=== PATIENT | female | born 1970 | race Caucasian/White ===

== ENCOUNTER 2017-05-25 15:14 | Emergency (ER) | payer MEDICAID ==
[2017-05-25 15:14] VITALS: BP 141/80; PULSE 112; RESP 21; TEMP 97.8; O2SAT 97
[2017-05-25] MEDS ORDERED: IBUPROFEN 800 MG TABLET PO ONE (15:45)
[2017-05-25 18:03] VITALS: BP 141/89; PULSE 98; RESP 21; TEMP 97.8; O2SAT 97
== END 2017-05-25 17:08 | disposition home or self-care (01) ==
LOC: SED 15:14
DX: S16.1XXA Strain of muscle, fascia and tendon at neck level, initial encounter (principal); S00.512A Abrasion of oral cavity, initial encounter; R03.0 Elevated blood-pressure reading, without diagnosis of hypertension; Y04.2XXA Assault by strike against or bumped into by another person, initial encounter; Y93.89 Activity, other specified; Y92.89 Other specified places as the place of occurrence of the external cause; Y99.8 Other external cause status
CPT/HCPCS: 70486-TC; 72125-TC; 99284

== ENCOUNTER 2017-05-27 14:54 | Emergency (ER) | payer MEDICAID ==
[~2017-05-27] VITALS: Ht 165.1 cm; Wt 81.6 kg
[2017-05-27 14:55] VITALS: BP_SYST 138
[2017-05-27] MEDS ORDERED: LIDOCAINE/EPI 1% 1:100000 20 ML VIAL INJ ONE ×2 (15:30→15:32)
[2017-05-27 15:32] VITALS: BP_SYST 138
== END 2017-05-27 15:32 | disposition home or self-care (01) ==
LOC: SED 14:54
DX: S01.511A Laceration without foreign body of lip, initial encounter (principal); Y04.2XXA Assault by strike against or bumped into by another person, initial encounter; Y93.89 Activity, other specified; Y92.89 Other specified places as the place of occurrence of the external cause; Y99.8 Other external cause status
CPT/HCPCS: 99284